=== PATIENT | male | born 1980 ===

== ENCOUNTER 2018-01-18 20:01 | Emergency (ER) | payer OTHER | END 2018-01-18 22:01 | disposition home or self-care (01) | LOC: FTE 20:01 | DX: R51 Headache (principal); M54.2 Cervicalgia | CPT/HCPCS: 70450; 99284-25 ==

== ENCOUNTER 2018-05-25 14:00 | Emergency (ER) | payer OTHER ==
[2018-05-25 16:47] LABS: ADD MAN DIFF? NO
[2018-05-25 16:49] LABS: EOSINOPHILS % 3.1 % (0.0-7.0); HEMATOCRIT 52.4 % (42.0-52.0); HEMOGLOBIN 18.1 g/dl (14.0-18.0); MEAN CORPUSCULAR HEMOGLOBIN 31.5 pg (29.0-33.0); MEAN CORPUSCULAR HGB CONC 34.5 g/dl (32.0-37.0); MEAN CORPUSCULAR VOLUME 91.3 fl (82.0-101.0); MEAN PLATELET VOLUME 9.3 fl (7.4-10.4); MONOCYTES % 9.4 % (0.0-11.0); NEUTROPHILS % 54.3 % (39.0-77.0); PLATELET COUNT 343 10^3/UL (140-415); RED BLOOD COUNT 5.74 10^6/ul (4.70-6.10)
[2018-05-25 16:49] LABS: WHITE BLOOD COUNT 9.3 10^3/ul (4.8-10.8)
[2018-05-25 16:50] LABS: BASOPHIL # 0.1 10^3/ul (0.0-0.1); EOSINOPHILS # 0.3 10^3/ul (0.0-0.5); MONOCYTE # 0.9 10^3/ul (0.3-0.9)
[2018-05-25 17:07] LABS: ALANINE AMINOTRANSFERASE 59 IU/L (13-69); ALBUMIN 5.2 g/dl (3.3-4.9); ALBUMIN/GLOBULIN RATIO 1.48; ALKALINE PHOSPHATASE 35 IU/L (42-121); ANION GAP 15 (8-16); ASPARTATE AMINO TRANSFERASE 40 IU/L (15-46); BLOOD UREA NITROGEN 12 mg/dl (7-20); CALCIUM 10.5 mg/dl (8.4-10.2); CARBON DIOXIDE 25 mmol/L (21-31); CHLORIDE 104 mmol/L (97-110); CREATININE 1.17 mg/dl (0.61-1.24); GLUCOSE 91 mg/dl (70-220); POTASSIUM 4.4 mmol/L (3.5-5.1); SODIUM 140 mmol/L (135-144); TOTAL PROTEIN 8.7 g/dl (6.1-8.1)
[2018-05-25 17:19] LABS: TROPONIN-I < 0.010 ng/ml (0.000-0.120)
== END 2018-05-25 17:37 | disposition home or self-care (01) ==
LOC: FTE 14:00
DX: R00.2 Palpitations (principal)
CPT/HCPCS: 80053; 84484; 85025; 93005; 99284-25